=== PATIENT | female | born 1995 | race Caucasian/White ===

== ENCOUNTER 2017-02-24 16:16 | Emergency (ER) | payer BC, OTHER ==
[2017-02-24 16:37] LABS: Bilirubin Negative (Negative); Blood, Urine Trace (Negative); Glucose, Urine (Dipstick) Negative (Negative); Ketone, Urine Trace mg/dL (Negative); Nitrite Positive (Negative); Protein, Urine (Dipstick) Negative (Neg-Trace); Urobilinogen 0.2 mg/dL (0.2-1.0)
[2017-02-24 16:48] LABS: Bacteria/HPF 3+ HPF (None Seen); Oval Fat Bodies/HPF Rare HPF (None Seen)
== END 2017-02-24 17:00 | disposition home or self-care (01) ==
LOC: SCSER 16:16
DX: N39.0 Urinary tract infection, site not specified (principal); F41.9 Anxiety disorder, unspecified
CPT/HCPCS: 81003; 81015; 81025; 87081; 99283